=== PATIENT | male | born 1990 | race Caucasian/White ===

== ENCOUNTER 2022-11-24 09:51 | Emergency (ER) | payer OTHER, SELFPAY ==
--- NOTE | ~2022-11-24 | XR_ITS ---
EXAMINATION: XR ribs RT 2V DATE: 11/24/2022 10:22 INDICATION: Right rib pain. Injury. TECHNIQUE: 2 views of the right ribs on 3 radiographs were obtained. COMPARISON: None. FINDINGS: There is no right-sided pneumonia, pleural effusion, or pneumothorax. The heart size is nor mal. IMPRESSION: 1. No right-sided rib fracture. Reviewed, dictated and finalized at location A.
--- NOTE | ~2022-11-24 | XR_ITS ---
EXAMINATION: XR wrist RT min 3V DATE: 11/24/2022 10:22 INDICATION: Right wrist injury and pain. TECHNIQUE: 4 views of right wrist were obtained. COMPARISON: None. FINDINGS: There is a nondisplaced transverse fracture of scaphoid waist. There is an old healed fract ure of diaphysis of fifth metacarpal. Joint spaces are normal. IMPRESSION: 1. Nondisplaced transverse fracture of scaphoid waist. Reviewed, dictated and finalized at location A.
[2022-11-24 09:58] VITALS: BP 141/85; PULSE 63; RESP 16; TEMP 36.2; O2SAT 100
[2022-11-24] MEDS: HYDROcodone/acetaminophen (*CRX) 7.5-325 MG TABLET 1 TAB PO (11:30)
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
[2022-11-24 12:08] VITALS: BP 142/81; PULSE 62; RESP 16; O2SAT 98
== END 2022-11-24 12:07 | disposition home or self-care (01) ==
LOC: ANHED 12:02
PROVIDERS: Emergency Provider Nurse Practitioner Adult Health
DX: S62.024A Nondisplaced fracture of middle third of navicular [scaphoid] bone of right wrist, initial encounter for closed fracture (principal); S20.311A Abrasion of right front wall of thorax, initial encounter; V86.95XA Unspecified occupant of 3- or 4- wheeled all-terrain vehicle (ATV) injured in nontraffic accident, initial encounter
CPT/HCPCS: 29125; 71100; 73110; 99284; A9270